=== PATIENT | male | born 1935 | race Caucasian/White ===

== ENCOUNTER → 2021-04-02 | Outpatient (CLI) | payer MEDICARE ==
[~2021-04-02] MED LIST: ACIDOPHILUS LACT1 GM PO; DAKIN'S SOLUTI500 ML EXT; ENALAPRIL MALEA10 MG PO; GERITOL COMPLE1 EACH PO; INDAPAMIDE1.25 MG PO; LACTINEX PACKET1 PKT PO; MELOXICAM15 MG PO; MYCOSTATIN100000 UTS PO; NEURONTIN 400400 MG PO; PERCOCET 5-3251 EACH PO; PROBIOTIC1 EAC1 PO; ROCEPHIN 22 G/50 ML IV; SYNTHROID150 MCG PO; VANCOMYCIN HCL250 MG PO; VITAMIN C 500500 MG PO; ZYVOX600 MG PO
== END ==
LOC: HEART CORB 13:59
DX: I10 Essential (primary) hypertension (principal); R53.83 Other fatigue; Z86.79 Personal history of other diseases of the circulatory system; I08.0 Rheumatic disorders of both mitral and aortic valves; R93.1 Abnormal findings on diagnostic imaging of heart and coronary circulation
CPT/HCPCS: 93306

== ENCOUNTER → 2021-04-23 | Outpatient (CLI) | payer MEDICARE | LOC: HEART CORB 10:32 | DX: I51.9 Heart disease, unspecified (principal); R07.2 Precordial pain; R06.02 Shortness of breath | CPT/HCPCS: J2785 ==

== ENCOUNTER → 2021-06-12 | Outpatient (CLI) | payer MEDICARE ==
[~2021-06-12] MED LIST changes: +NEURONTIN400 MG PO; +SYNTHROID112 MCG PO; -SYNTHROID150 MCG PO; +VITAMIN D21250 MCG PO
[2021-06-12 12:29] LABS: HEMOGLOBIN 14.4 gm/dl (14.0-17.5); RED BLOOD COUNT 4.66 M/UL (4.20-5.50); WHITE BLOOD COUNT 5.4 K/UL (4.5-11.0)
== END ==
LOC: OPSV2 10:48
PROVIDERS: Orthopaedic Surgery
DX: Z01.818 Encounter for other preprocedural examination (principal); M17.12 Unilateral primary osteoarthritis, left knee; I10 Essential (primary) hypertension
CPT/HCPCS: 71046; 80048; 81001; 85027; 87081

== ENCOUNTER → 2021-06-24 | Outpatient (CLI) | payer MEDICARE | LOC: LAB 11:46 | PROVIDERS: Orthopaedic Surgery | DX: Z01.812 Encounter for preprocedural laboratory examination (principal); I10 Essential (primary) hypertension | CPT/HCPCS: 80048; 86850; 86900; 86901 ==

== ENCOUNTER 2021-06-25 05:40 | Day surgery (SDC) | payer MEDICARE ==
[~2021-06-25] VITALS: Ht 188 cm; Wt 116.1 kg
[~2021-06-25 05:40] MED LIST changes: -NEURONTIN400 MG PO
[2021-06-25] MEDS ORDERED: NEURONTIN400 MG PO (21:34)
[2021-06-26 06:15] LABS: HEMOGLOBIN 12.3 gm/dl (14.0-17.5); RED BLOOD COUNT 4.12 M/UL (4.20-5.50); WHITE BLOOD COUNT 11.1 K/UL (4.5-11.0)
[2021-06-27 07:08] LABS: HEMOGLOBIN 12.9 gm/dl (14.0-17.5); RED BLOOD COUNT 4.21 M/UL (4.20-5.50)
[2021-06-27 07:12] LABS: WHITE BLOOD COUNT 7.8 K/UL (4.5-11.0)
[2021-06-28 07:52] LABS: HEMOGLOBIN 12.5 gm/dl (14.0-17.5); RED BLOOD COUNT 4.22 M/UL (4.20-5.50); WHITE BLOOD COUNT 7.3 K/UL (4.5-11.0)
[2021-06-28] MEDS ORDERED: ELIQUIS2.5 MG PO (10:48)
[2021-06-28] MEDS ORDERED: HYDROCODON-ACE1 EAC2 PO (10:51)
== END 2021-06-28 14:11 ==
LOC: OR 05:40 → M/S 05:40 → EDSTATUS 07:30 → ZOBSOF 07:30 → OR 07:30 → M/S 12:06 → OR 12:45
PROVIDERS: Orthopaedic Surgery
PROC: 3E0T3BZ Introduction of Anesthetic Agent into Peripheral Nerves and Plexi, Percutaneous Approach (ICD-10-PCS; principal; 2021-06-25 09:00)
PROC: 0SRD0J9 Replacement of Left Knee Joint with Synthetic Substitute, Cemented, Open Approach (ICD-10-PCS; principal; 2021-06-25 09:00)
DX: M17.12 Unilateral primary osteoarthritis, left knee (principal); M21.062 Valgus deformity, not elsewhere classified, left knee; I10 Essential (primary) hypertension; E78.5 Hyperlipidemia, unspecified; E89.0 Postprocedural hypothyroidism; I08.3 Combined rheumatic disorders of mitral, aortic and tricuspid valves; G62.9 Polyneuropathy, unspecified; Z20.822 Contact with and (suspected) exposure to COVID-19; Z86.16 Personal history of COVID-19; Z85.850 Personal history of malignant neoplasm of thyroid; Z79.891 Long term (current) use of opiate analgesic; Z79.899 Other long term (current) drug therapy; Z87.891 Personal history of nicotine dependence
CPT/HCPCS: 36415; 73560; 80048; 85025; 97110-GP-CQ; 97116-GP-CQ; 97161; 97166; 97530-GP-CQ; 97535; C1776; J0171; J0690; J1100; J1170; J2001; J2405; J2704; J2710; J2795; J3010; J3370; J7120; U0002